=== PATIENT | male | born 1980 | race African-American/Black ===

== ENCOUNTER 2016-08-14 11:39 | Emergency (ER) | payer BC ==
--- NOTE | 2016-08-14 12:42 | EDDOCDS ---
Nurse's Notes [facility] Name: Shine Landin Age: 35 yrs Sex: Male : 1980 Arrival Date: 08/14/2016 Time: 11:39 Bed TR7 Private MD: [facility] Diagnosis: Low back pain Presentation: 08/14 11:48 Presenting complaint: Patient states: History of chronic back pain. Today, is worse and jo3 is radiating to hips and legs. Adult Sepsis Screening: The patient does not have new or worsening altered mentation. Patient's respiratory rate is less than 22. Systolic blood pressure is greater than 100. Patient has a qSOFA score of 0- Negative Sepsis Screen. Suicide/Homicide risk assessment- the patient denies having any suicidal and/or homicidal ideations and does not present with any other emotional, behavioral or mental health complaints. Status: Patient is not a volunteer services assistant or dependent. Transition of care: patient was not received from another setting of care. 11:48 Acuity: JUAN M Level 5 jo3 11:48 Acuity: JUAN M Level 4 jo3 11:48 Method Of Arrival: Walkin/Carried/Asstd jo3 Triage Assessment: 11:50 General: Appears in no apparent distress, Behavior is appropriate for age, cooperative. jo3 Pain: Pain currently is 10 out of 10 on a pain scale. HIV screening NA for this visit Offered previously. Neurological: Level of Consciousness is awake, alert, Oriented to person, place, time. Respiratory: Airway is patent Respiratory effort is even, unlabored. Historical: - Allergies: No known drug Allergies; - Home Meds: 1. albuterol sulfate 90 mcg/actuation Inhl HFAA every 4-6 hours 2. Proventil 90 mcg/actuation Inhl aero prn 3. baclofen 10 mg Oral tab BID - PMHx: Asthma; chronic back pain; - PSHx: none; - Social history: Smoking status: Patient uses tobacco products, light tobacco smoker. No barriers to communication noted, The patient speaks fluent Andorran, Speaks appropriately for age. - Family history: Not pertinent. - : The pt / caregiver states he / she is not on anticoagulants. Home medication list is obtained from the patient. - Exposure Risk Screening:: None identified. Screenin:41 Screening information is obtained from prior medical records. Fall risk: No risks kcs identified. Assistance ADL's: requires no assistance with activities of daily living. Abuse/DV Screen: The patient / caregiver reports he/she is: not in a situation that causes fear, pain or injury. Nutritional screening: No deficits noted. Advance Directives: Currently, there is no health care proxy. There is no living will. home support is adequate. Assessment: 12:39 General: Appears comfortable, well developed, well nourished, well groomed, Behavior is kcs cooperative, pleasant. Pain: Complains of pain in low back. Awake, alert, oriented. Skin warm and dry. Moves all extremities. Respirations unlabored. No apparent distress. The patient / caregiver is instructed regarding the plan of care and ED course. Physical assessment to be completed by PA/ANN. Vital Signs: 11:41 BP 151 / 87; Pulse 72; Resp 18; Temp 99.0(O); Pulse Ox 99% on R/A; Weight 102.06 kg elp (R); Height 5 ft. 11 in. (180.34 cm) (R); Pain 10/10; 11:41 Body Mass Index 31.38 (102.06 kg, 180.34 cm) [facility] Vitals: 11:41 Log In Time: August 14, 2016 at 11:35. [facility] ED Course: 11:40 Patient visited by Janell Jhaveri PCA. elp 11:40 [facility] is Private Physician. elp 11:40 Patient moved to Waiting elp 11:41 Patient visited by Janell Jhaveri PCA. elp 11:41 Patient moved to Pre RCE elp 11:49 Triage Initiated jo3 11:50 Patient visited by Bree Moon RN. jo3 12:05 Patient moved to Triage 1 kcs 12:18 [facility] Pack [facility]. btw 12:18 Radhika Cantrell MD is Attending Physician. btw 12:18 Patient visited by Yuriy Pack PA. btw 12:27 [facility] is Referral Physician. btw 12:38 Patient moved to TR7 kcs 12:39 Patient has correct armband on for positive identification. kcs 12:40 No IV's were initiated during this patient's visit. No procedures done that require kcs assistance. Order Results: There are currently no results for this order. Outcome: 12:27 Discharge ordered by Provider. btw 12:39 The following High Risk Discharge criteria are identified: None. Discharged to home kcs ambulatory. Condition: stable. Discharge instructions given to patient, Instructed on discharge instructions, follow up and referral plans. medication usage, no driving heavy equipment, no drinking with medication, Demonstrated understanding of instructions, medications, Pt was receptive of discharge instructions/ teaching. Work note provided to patient. No special radiology studies were completed. 12:40 Discharge Assessment: Patient awake, alert and oriented x 3. No cognitive and/or kcs functional deficits noted. Patient verbalized understanding of disposition instructions. Patient awake and alert. patient administered narcotics - no. Property sent home with patient. 12:41 Patient left the ED. kcs Signatures: Ani Carlos, RN RN Bree Norwood RN RN Yuriy Saldivar PA PA btw Shakila, Janell, CHRISTMAS BELL RINGER CHRISTMAS BELL RINGER elp SHERRID
--- NOTE | 2016-08-14 12:42 | EDDOCDS ---
Physician Documentation [facility] Name: Shine Landin Age: 35 yrs Sex: Male : 1980 Arrival Date: 08/14/2016 Time: 11:39 Bed TR7 Private MD: [facility] Disposition: 08/14/16 12:27 Discharged to Home/Self Care. Impression: Low back pain. - Condition is Stable. - Discharge Instructions: Chronic Back Pain, Back Pain, Adult, [id number]. - Prescriptions for Diclofenac Sodium 75 mg Oral Tablet, Delayed Release (E.C.) - take 1 tablet by ORAL route 2 times per day; 30 tablet. Robaxin- 750 750 mg Oral Tablet - take 1 tablet by ORAL route every 6 hours As needed; 40 tablet. - Work Release Form - 1 day, Medication Reconciliation, Local Pharmacy Hours form. - Follow up: [facility]; When: Call to arrange an appointment; Reason: Further diagnostic work-up, Recheck today's complaints, Continuance of care. - Problem is an acute exacerbation. - Symptoms are unchanged. Historical: - Allergies: No known drug Allergies; - Home Meds: 1. albuterol sulfate 90 mcg/actuation Inhl HFAA every 4-6 hours 2. Proventil 90 mcg/actuation Inhl aero prn 3. baclofen 10 mg Oral tab BID - PMHx: Asthma; chronic back pain; - PSHx: none; - Social history: Smoking status: Patient uses tobacco products, light tobacco smoker. No barriers to communication noted, The patient speaks fluent [place], Speaks appropriately for age. - Family history: Not pertinent. - : The pt / caregiver states he / she is not on anticoagulants. Home medication list is obtained from the patient. - Exposure Risk Screening:: None identified. Vital Signs: 08/14 11:41 BP 151 / 87; Pulse 72; Resp 18; Temp 99.0(O); Pulse Ox 99% on R/A; Weight 102.06 kg / elp 225 lbs (R); Height 5 ft. 11 in. (180.34 cm) (R); Pain 10/10; 11:41 Body Mass Index 31.38 (102.06 kg, 180.34 cm) elp Signatures: Ani Carlos RN Bree MyersRN RN jo3 Yuriy Pack PA PA btw MTDD
--- NOTE | 2016-08-16 13:42 | EDDOCDS ---
Nurse's Notes [facility] Name: Shine Landin Age: 35 yrs Sex: Male : 1980 Arrival Date: 08/14/2016 Time: 11:39 Bed TR7 Private MD: [facility] Diagnosis: Low back pain Presentation: 08/14 11:48 Presenting complaint: Patient states: History of chronic back pain. Today, is worse and jo3 is radiating to hips and legs. Adult Sepsis Screening: The patient does not have new or worsening altered mentation. Patient's respiratory rate is less than 22. Systolic blood pressure is greater than 100. Patient has a qSOFA score of 0- Negative Sepsis Screen. Suicide/Homicide risk assessment- the patient denies having any suicidal and/or homicidal ideations and does not present with any other emotional, behavioral or mental health complaints. 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 Transition of care: patient was not received from another setting of care. 11:48 Acuity: JUAN M Level 5 jo3 11:48 Acuity: JUAN M Level 4 jo3 11:48 Method Of Arrival: Walkin/Carried/Asstd jo3 Triage Assessment: 11:50 General: Appears in no apparent distress, Behavior is appropriate for age, cooperative. jo3 Pain: Pain currently is 10 out of 10 on a pain scale. HIV screening NA for this visit Offered previously. Neurological: Level of Consciousness is awake, alert, Oriented to person, place, time. Respiratory: Airway is patent Respiratory effort is even, unlabored. Historical: - Allergies: No known drug Allergies; - Home Meds: 1. albuterol sulfate 90 mcg/actuation Inhl HFAA every 4-6 hours 2. Proventil 90 mcg/actuation Inhl aero prn 3. baclofen 10 mg Oral tab BID - PMHx: Asthma; chronic back pain; - PSHx: none; - Social history: Smoking status: Patient uses tobacco products, light tobacco smoker. No barriers to communication noted, The patient speaks fluent [place] Citizen, Speaks appropriately for age. - Family history: Not pertinent. - : The pt / caregiver states he / she is not on anticoagulants. Home medication list is obtained from the patient. - Exposure Risk Screening:: None identified. Screenin:41 Screening information is obtained from prior medical records. Fall risk: No risks kcs identified. Assistance ADL's: requires no assistance with activities of daily living. Abuse/DV Screen: The patient / caregiver reports he/she is: not in a situation that causes fear, pain or injury. Nutritional screening: No deficits noted. Advance Directives: Currently, there is no health care proxy. There is no living will. home support is adequate. Assessment: 12:39 General: Appears comfortable, well developed, well nourished, well groomed, Behavior is kcs cooperative, pleasant. Pain: Complains of pain in low back. Awake, alert, oriented. Skin warm and dry. Moves all extremities. Respirations unlabored. No apparent distress. The patient / caregiver is instructed regarding the plan of care and ED course. Physical assessment to be completed by PA/ANN. Vital Signs: 11:41 BP 151 / 87; Pulse 72; Resp 18; Temp 99.0(O); Pulse Ox 99% on R/A; Weight 102.06 kg elp (R); Height 5 ft. 11 in. (180.34 cm) (R); Pain 10/10; 11:41 Body Mass Index 31.38 (102.06 kg, 180.34 cm) [facility] Vitals: 11:41 Log In Time: August 14, 2016 at 11:35. [facility] ED Course: 11:40 Patient visited by Janell Jhaveri PCA. elp 11:[address] [facility] is Private Physician. elp 11:40 Patient moved to Waiting elp 11:41 Patient visited by Janell Jhaveri PCA. elp 11:41 Patient moved to Pre RCE elp 11:49 Triage Initiated jo3 11:50 Patient visited by Bree Moon RN. jo3 12:05 Patient moved to Triage 1 kcs 12:18 [facility]. btw 12:18 Radhika Cantrell MD is Attending Physician. btw 12:18 Patient visited by Yruiy Pack PA. btw 12:[address] [facility] is Referral Physician. btw 12:38 Patient moved to TR7 kcs 12:39 Patient has correct armband on for positive identification. kcs 12:40 No IV's were initiated during this patient's visit. No procedures done that require kcs assistance. 12:42 [facility] Payment Agreement was scanned into [employer] and attached to record. jp5 08/15 11:47 T-Sheet-- Draft Copy was scanned into [employer] and attached to record. gb Order Results: There are currently no results for this order. Outcome: 08/14 12:27 Discharge ordered by Provider. btw 12:39 The following High Risk Discharge criteria are identified: None. Discharged to home kcs ambulatory. Condition: stable. Discharge instructions given to patient, Instructed on discharge instructions, follow up and referral plans. medication usage, no driving heavy equipment, no drinking with medication, Demonstrated understanding of instructions, medications, Pt was receptive of discharge instructions/ teaching. Work note provided to patient. No special radiology studies were completed. 12:40 Discharge Assessment: Patient awake, alert and oriented x 3. No cognitive and/or kcs functional deficits noted. Patient verbalized understanding of disposition instructions. Patient awake and alert. patient administered narcotics - no. Property sent home with patient. 12:41 Patient left the ED. kcs Signatures: Ani Carlos, RN RN Scarlet Stephens, Reg Reg Bree BrandRN RN Yuriy Saldivar PA PA btw Janell Jhaveri, [employer] Harshad Dockery jp5 Chart Complete MTDD
--- NOTE | 2016-08-16 13:42 | EDDOCDS ---
Physician Documentation [facility] Name: Shine Landin Age: 35 yrs Sex: Male : 1980 Arrival Date: 08/14/2016 Time: 11:39 Bed TR7 Private MD: [facility] Disposition: 08/14/16 12:27 Discharged to Home/Self Care. Impression: Low back pain. - Condition is Stable. - Discharge Instructions: Chronic Back Pain, Back Pain, Adult, [id number]. - Prescriptions for Diclofenac Sodium 75 mg Oral Tablet, Delayed Release (E.C.) - take 1 tablet by ORAL route 2 times per day; 30 tablet. Robaxin- 750 750 mg Oral Tablet - take 1 tablet by ORAL route every 6 hours As needed; 40 tablet. - Work Release Form - 1 day, Medication Reconciliation, Local Pharmacy Hours form. - Follow up: [facility]; When: Call to arrange an appointment; Reason: Further diagnostic work-up, Recheck today's complaints, Continuance of care. - Problem is an acute exacerbation. - Symptoms are unchanged. Historical: - Allergies: No known drug Allergies; - Home Meds: 1. albuterol sulfate 90 mcg/actuation Inhl HFAA every 4-6 hours 2. Proventil 90 mcg/actuation Inhl aero prn 3. baclofen 10 mg Oral tab BID - PMHx: Asthma; chronic back pain; - PSHx: none; - Social history: Smoking status: Patient uses tobacco products, light tobacco smoker. No barriers to communication noted, The patient speaks fluent Israeli, Speaks appropriately for age. - Family history: Not pertinent. - : The pt / caregiver states he / she is not on anticoagulants. Home medication list is obtained from the patient. - Exposure Risk Screening:: None identified. Vital Signs: 08/14 11:41 BP 151 / 87; Pulse 72; Resp 18; Temp 99.0(O); Pulse Ox 99% on R/A; Weight 102.06 kg / elp 225 lbs (R); Height 5 ft. 11 in. (180.34 cm) (R); Pain 10/10; 11:41 Body Mass Index 31.38 (102.06 kg, 180.34 cm) elp MDM: 12:42 [facility] Payment Agreement was scanned into [employer] and attached to record. jp5 12:42 Financial registration complete. jp5 08/15 11:47 T-Sheet-- Draft Copy was scanned into [employer] and attached to record. gb Signatures: Ani Carlos RN RN Scarlet Stephens, Reg Reg Bree Brand RN RN jo3 Yuriy Pack PA PA btw Price, Jennalee jp5 The chart was reviewed and I authenticate all verbal orders and agree with the evaluation and treatment provided.Attachments: 08/14 12:42 [facility] Payment Agreement jp5 08/15 11:47 T-Sheet-- Draft Copy gb Chart Complete MTDD
--- NOTE | 2016-08-16 13:42 | EDDOCDS ---
Physician Documentation [facility] Name: Shine Landin Age: 35 yrs Sex: Male : 1980 Arrival Date: 08/14/2016 Time: 11:39 Bed TR7 Private MD: [facility] Disposition: 08/14/16 12:27 Discharged to Home/Self Care. Impression: Low back pain. - Condition is Stable. - Discharge Instructions: Chronic Back Pain, Back Pain, Adult, [id number]. - Prescriptions for Diclofenac Sodium 75 mg Oral Tablet, Delayed Release (E.C.) - take 1 tablet by ORAL route 2 times per day; 30 tablet. Robaxin- 750 750 mg Oral Tablet - take 1 tablet by ORAL route every 6 hours As needed; 40 tablet. - Work Release Form - 1 day, Medication Reconciliation, Local Pharmacy Hours form. - Follow up: [facility]; When: Call to arrange an appointment; Reason: Further diagnostic work-up, Recheck today's complaints, Continuance of care. - Problem is an acute exacerbation. - Symptoms are unchanged. Historical: - Allergies: No known drug Allergies; - Home Meds: 1. albuterol sulfate 90 mcg/actuation Inhl HFAA every 4-6 hours 2. Proventil 90 mcg/actuation Inhl aero prn 3. baclofen 10 mg Oral tab BID - PMHx: Asthma; chronic back pain; - PSHx: none; - Social history: Smoking status: Patient uses tobacco products, light tobacco smoker. No barriers to communication noted, The patient speaks fluent [place], Speaks appropriately for age. - Family history: Not pertinent. - : The pt / caregiver states he / she is not on anticoagulants. Home medication list is obtained from the patient. - Exposure Risk Screening:: None identified. Vital Signs: 08/14 11:41 BP 151 / 87; Pulse 72; Resp 18; Temp 99.0(O); Pulse Ox 99% on R/A; Weight 102.06 kg / elp 225 lbs (R); Height 5 ft. 11 in. (180.34 cm) (R); Pain 10/10; 11:41 Body Mass Index 31.38 (102.06 kg, 180.34 cm) elp MDM: 12:42 [facility] Payment Agreement was scanned into [employer] and attached to record. jp5 12:42 Financial registration complete. jp5 08/15 11:47 T-Sheet-- Draft Copy was scanned into [employer] and attached to record. gb Signatures: Ani Carlos RN RN Scarlet Stephens, Reg Reg Bree Brand RN RN jo3 Yuriy Pack PA PA btw Price, Jennalee jp5 The chart was reviewed and I authenticate all verbal orders and agree with the evaluation and treatment provided.Attachments: 08/14 12:42 [facility] Payment Agreement jp5 08/15 11:47 T-Sheet-- Draft Copy gb Chart Complete MTDD
== END 2016-08-14 12:41 | disposition home or self-care (01) ==
LOC: M ED 11:39
DX: M54.5 Low back pain (principal); G89.29 Other chronic pain; J45.909 Unspecified asthma, uncomplicated; F17.210 Nicotine dependence, cigarettes, uncomplicated; Z79.899 Other long term (current) drug therapy

== ENCOUNTER 2017-02-02 16:11 | Emergency (ER) | payer OTHER, BC ==
[~2017-02-02] VITALS: Ht 180.3 cm; Wt 104.0 kg
[2017-02-02 16:20] VITALS: BP_DIAS 96
[2017-02-02] MEDS ORDERED: ARTISOL2 (16:30)
[2017-02-02] MEDS ORDERED: ADVA45AE (16:30)
[2017-02-02] MEDS ORDERED: CVS (16:30)
[2017-02-02] MEDS ORDERED: ZADI1DRO (16:30)
[2017-02-02] MEDS ORDERED: ESCI10TA2 (16:30)
[2017-02-02] MEDS ORDERED: BACL10TA2 (16:30)
[2017-02-02] MEDS ORDERED: ATOR1TAB21 (16:30)
[2017-02-02] MEDS ORDERED: SYMB16INH (16:30)
[2017-02-02] MEDS ORDERED: LEXA1TAB2 (16:30)
[2017-02-02] MEDS ORDERED: FLUT1SPR2 (16:30)
[2017-02-02 17:28] LABS: MEAN CORPUSCULAR HEMOGLOBIN 31.6 pg (27.0-33.0); MEAN CORPUSCULAR HGB CONC 34.1 g/dl (32.0-36.5); MEAN CORPUSCULAR VOLUME 92.6 fl (80.0-96.0); RED CELL DISTRIBUTION WIDTH 13.1 % (11.5-14.5); WHITE BLOOD COUNT 4.4 K/mm3 (4.0-10.0)
[2017-02-02 17:45] LABS: ALBUMIN 3.8 GM/DL (3.2-5.2); ALBUMIN/GLOBULIN RATIO 1.23 (1.00-1.93); ALKALINE PHOSPHATASE 71 U/L (45-117); ALT/SGPT 68 U/L (12-78); ANION GAP 5 MEQ/L (8-16); AST/SGOT 78 U/L (15-37); BILIRUBIN,DIRECT 0.1 MG/DL (0.0-0.2); BILIRUBIN,TOTAL 0.5 MG/DL (0.2-1.0); BLOOD UREA NITROGEN 8 MG/DL (7-18); CALCIUM LEVEL 9.3 MG/DL (8.5-10.1); CARBON DIOXIDE LEVEL 29 MEQ/L (21-32); CHLORIDE LEVEL 104 MEQ/L (98-107); CREATININE FOR GFR 1.22 MG/DL (0.70-1.30); GLOMERULAR FILTRATION RATE > 60.0 (>60); GLUCOSE, FASTING 72 MG/DL (70-105); POTASSIUM SERUM 3.8 MEQ/L (3.5-5.1); SODIUM LEVEL 138 MEQ/L (136-145); TOTAL PROTEIN 6.9 GM/DL (6.4-8.2)
[2017-02-02 17:56] LABS: METHADONE URINE NEGATIVE (NEGATIVE)
[2017-02-02 18:10] VITALS: BP_SYST 155
== END 2017-02-02 18:12 | disposition home or self-care (01) ==
LOC: M ED 16:11
DX: F43.0 Acute stress reaction (principal); F43.10 Post-traumatic stress disorder, unspecified; G47.30 Sleep apnea, unspecified; M54.9 Dorsalgia, unspecified; Z79.899 Other long term (current) drug therapy
CPT/HCPCS: 36415; 80048; 80076; 80307; 84443; 85027; 99284; G0480

== ENCOUNTER → 2017-06-16 | Outpatient (REF) | payer BC ==
[~2017-06-16] MED LIST: ADVA45AE; ARTISOL2; ATOR1TAB21; BACL10TA2; CVS; ESCI10TA2; FLUT1SPR2; LEXA1TAB2; SYMB16INH; ZADI1DRO
== END ==
LOC: M SFHCADAM 13:38
PROVIDERS: ATTEND Physician Assistant
DX: R19.7 Diarrhea, unspecified (principal); Z53.8 Procedure and treatment not carried out for other reasons

== ENCOUNTER → 2017-07-02 | Outpatient (REF) | payer BC ==
[2017-07-02 20:27] LABS: ALBUMIN 3.6 GM/DL (3.2-5.2); ALBUMIN/GLOBULIN RATIO 1.06 (1.00-1.93); ALKALINE PHOSPHATASE 77 U/L (45-117); ALT/SGPT 54 U/L (12-78); AMYLASE 76 U/L (25-115); ANION GAP 5 MEQ/L (8-16); AST/SGOT 23 U/L (7-37); BILIRUBIN,TOTAL 0.3 MG/DL (0.2-1.0); BLOOD UREA NITROGEN 7 MG/DL (7-18); CALCIUM LEVEL 8.6 MG/DL (8.5-10.1); CARBON DIOXIDE LEVEL 30 MEQ/L (21-32); CHLORIDE LEVEL 111 MEQ/L (98-107); CREATININE FOR GFR 1.04 MG/DL (0.70-1.30); GLOMERULAR FILTRATION RATE > 60.0 (>60); GLUCOSE, FASTING 74 MG/DL (70-105); SODIUM LEVEL 146 MEQ/L (136-145)
[2017-07-02 20:52] LABS: BASO % 0.3 % (0.0-1.0); EOS # 0.1 10^3/uL (0.0-0.50); EOS % 1.7 % (0.0-3.0); IMMATURE GRANULOCYTE % 0.2 % (0-0); LYMPH % 46.5 % (24.0-44.0); MEAN CORPUSCULAR HEMOGLOBIN 30.9 pg (27.0-33.0); MEAN CORPUSCULAR HGB CONC 32.6 g/dl (32.0-36.5); MEAN CORPUSCULAR VOLUME 94.7 fl (80.0-96.0); MONO # 0.5 10^3/uL (0.0-0.8); MONO % 8.3 % (0.0-5.0); NEUTROPHILS # 2.7 10^3/uL (1.8-7.7); PLATELET COUNT, AUTOMATED 288 10^3/uL (150-450); RED CELL DISTRIBUTION WIDTH 13.6 % (11.5-14.5); WHITE BLOOD COUNT 6.4 10^3/uL (4.0-10.0)
[2017-07-02 21:35] LABS: ERYTHROCYTE SEDIMENTATION RATE 12 mm/hr (0-15)
== END ==
LOC: M SFHCADAM 16:02
PROVIDERS: ATTEND Physician Assistant
DX: R19.7 Diarrhea, unspecified (principal)

== ENCOUNTER → 2018-06-30 | Outpatient (CLI) | payer BC ==
[~2018-06-30] MED LIST changes: +PERC5TAB12 PO; +ROBA500T PO
--- NOTE | 2018-06-30 19:31 | REP ---
Nickel: Left hip pain. Technique: Neutral and frog lateral views of the left hip. Findings: Minimal joint space narrowing with subchondral sclerosis to the acetabular roof is appreciated. Linear calcification in the soft tissues overlying the medial thigh. Impression: Mild age-related degenerative changes. Chronic soft tissue calcification. Electronically Signed by Robert Bragg MD 06/30/2018 07:22 P
== END ==
LOC: M ADAMS 14:04
PROVIDERS: ATTEND Family Medicine
DX: M25.552 Pain in left hip (principal)

== ENCOUNTER 2018-07-04 04:31 | Emergency (ER) | payer OTHER, BC ==
[~2018-07-04] VITALS: Ht 180.3 cm; Wt 100.0 kg
[2018-07-04 04:31] VITALS: BP 162/94
[~2018-07-04 04:31] MED LIST changes: -PERC5TAB12 PO; -ROBA500T PO
[2018-07-04] MEDS ORDERED: ROBA500T PO (04:56)
[2018-07-04] MEDS ORDERED: PERC5TAB12 PO (04:56)
[2018-07-04] MEDS ORDERED: METHOCARBAMOL 750 MG TAB PO ONE (05:00)
[2018-07-04] MEDS ORDERED: OXYCODONE/APAP 5MG/325MG(BULK FOR ED) 1 TABLET PO ONE (05:00)
== END 2018-07-04 05:11 | disposition home or self-care (01) ==
LOC: M ED 04:31
DX: M54.42 Lumbago with sciatica, left side (principal); F17.210 Nicotine dependence, cigarettes, uncomplicated

== ENCOUNTER → 2023-04-20 | Outpatient (CLI) | payer BC, OTHER ==
[~2023-04-20] MED LIST changes: +ESCI10TA16; -ESCI10TA2; +PERC5TAB12 PO; +ROBA500T PO
== END ==
LOC: M SLEEP 20:00
PROVIDERS: ATTEND Nurse Practitioner Family
DX: R06.83 Snoring (principal)

== ENCOUNTER → 2024-05-06 | Outpatient (CLI) | payer BC, OTHER | LOC: M PLAIMG 14:08 | DX: J40 Bronchitis, not specified as acute or chronic (principal) ==

== ENCOUNTER → 2024-05-06 | Outpatient (REF) | payer BC | LOC: M SFHCPLAZ 14:14 | DX: J40 Bronchitis, not specified as acute or chronic (principal); Z53.9 Procedure and treatment not carried out, unspecified reason ==